=== PATIENT | male | born 1995 | race Caucasian/White ===

== ENCOUNTER 2020-12-01 16:15 | Emergency (ER) | payer OTHER, SELFPAY ==
[2020-12-01 16:17] VITALS: BP 145/104; PULSE 99; RESP 18; TEMP 36.6; O2SAT 97
--- NOTE | 2020-12-01 18:00 | PC.NURSE ---
whilst proceeding to medicate pt, pt stated My headache is gone, i feel better after the flush . I informed pt that there was no medication in flush and asked pt how he feels now and what he would like to do. pt stated I'm just hungry right now, i would just like to go home I feel better . I spoke with Dr. Zayas whom spoke with pt and pt was happy to be discharged.
--- NOTE | 2020-12-01 18:18 | ED.HA ---
HPI - Headache General Chief Complaint: Headache Stated Complaint: Headache Time Seen by Provider: 12/01/20 17:15 Source: patient Mode of arrival: ambulatory Limitations: no limitations History of Present Illness HPI Narrative: 25 years old white male complaining of right side squeezing headache started at 1 AM. Patient finished his work last night 10 PM, watching TV with his girlfriend then developed right-sided headache. Patient had Tylenol, ibuprofen, Aleve, Excedrin without improvement. Patient denies any vomiting or vision change. Patient also denies any fever, chills. Patient reports 3 loose stools yesterday. Which results today. Related Data Home Medications Medication Instructions Recorded Confirmed No Home Medications 12/01/20 12/01/20 Allergies Allergy/AdvReac Type Severity Reaction Status Date / Time No Known Allergies Allergy Verified 12/01/20 16:20 Review of Systems Review of Systems: CONSTITUTIONAL: Denies fever, chills, or sweats. EYES: Denies visual changes, redness, or discharge. ENT: Denies rhinorrhea, congestion, sore throat, or otalgia. CARDIOVASCULAR: Denies chest pain, palpitations, or edema. RESPIRATORY: Denies cough or dyspnea. GASTROINTESTINAL: Denies abdominal pain, nausea, vomiting, or diarrhea. GENITOURINARY: Denies dysuria or hematuria. SKIN: Denies rash or itching. MUSCULOSKELETAL: Denies back pain, joint pain, or myalgia. NEUROLOGIC: Denies headache, numbness, or weakness. PSYCHIATRIC: Denies anxiety or depression. PMFSH Social History Social History Gender identity (if verbalized by the patient): Male Exam Narrative: General appearance: Well-developed, well-nourished Skin: Normal color Head: Normocephalic, nontraumatic Eyes: Clear conjunctiva ENT: Oropharynx normal, ears normal, nose normal Neck: Supple, nontender Chest and respiratory: Airway patent, no respiratory distress, no accessory muscle use Heart: Regular rate/rhythm Abdomen: Soft, nontender, no organomegaly, quiet bowel sounds Vascular: Normal peripheral pulses, normal capillary refill. Musculoskeletal: Normal range of motion, nontender back Neurologic: Alert and oriented ?3, INTERLACER is normal as tested, no gross motor deficit Course Course Emergency Course: Stable, resolved Vital Signs Vital signs: Vital Signs Temperature 36.6 C 12/01/20 16:17 Pulse Rate 99 12/01/20 16:17 Respiratory Rate 18 12/01/20 16:17 Blood Pressure 145/104 H 12/01/20 16:17 Pulse Oximetry 97 12/01/20 16:17 Temperature 36.6 C 12/01/20 16:17 Pulse Rate 99 12/01/20 16:17 Respiratory Rate 18 12/01/20 16:17 Blood Pressure 145/104 H 12/01/20 16:17 Pulse Oximetry 97 12/01/20 16:17 MDM - Headache MDM Narrative Medical decision making narrative: Migraine headache. Patient headache resolved immediately after having IV access and 30 mL of normal saline flush. Currently patient is asymptomatic and would like to go home. Differential Diagnosis Differential diagnosis: Likely migraine and tension headache Critical Care Time Critical Care Time Critical Care Time: No Discharge Plan Discharge Clinical Impression: Headache Qualifiers: Headache type: unspecified Headache chronicity pattern: unspecified pattern Intractability: not intractable Qualified Code(s): R51.9 - Headache, unspecified Patient Disposition: Home, Self-Care Condition: Improved Instructions: Antibiotic Form, Acute Headache (ED) Additional Instructions: Return if symptoms are worsening , call your family physician for appointment, take Tylenol as as needed for aches and pain, continue home medication
[2020-12-01 18:31] VITALS: BP 143/90; PULSE 85; RESP 16; O2SAT 98
== END 2020-12-01 18:30 | disposition home or self-care (01) ==
PROVIDERS: Emergency Provider Emergency Medicine
DX: R51.9 Headache, unspecified (principal)
CPT/HCPCS: 99281